=== PATIENT | male | born 1955 | race Caucasian/White ===

== ENCOUNTER → 2023-05-05 | Emergency (ER) | payer MEDICARE ==
[~2023-05-05] MED LIST: CHLORPROMAZINE 25 MG TAB PO SCH; LIDOCAINE VISCOUS 2% 10ML ORAL SOLN ONE; MAGNES/ALUMIN/SIMET 30ML UCUP ONE; NA CHLORIDE 0.9% 500 ML ONE; chlordiazePOXIDE HCl 25 MG CAP ONE
--- NOTE | 2023-05-05 19:04 | RAD REPORT ---
EXAM DESCRIPTION: RAD - Chest Pa And Lat (2 Views) - 05/05/2023 6:51 pm CLINICAL HISTORY: COUGH Chest pain. COMPARISON: Chest Pa And Lat (2 Views) dated 05/25/2019; Chest Pa And Lat (2 Views) dated 07/17/2015 FINDINGS: The lungs are clear. The heart is normal in size. No displaced fractures. IMPRESSION: No acute or concerning finding suspected.
[2023-05-05 19:10] LABS: Albumin 3.6 g/dL (3.4-5.0); Bilirubin Total 0.9 mg/dL (0.2-1.0); Potassium 3.7 mEq/L (3.5-5.1); Protein, Total 6.8 g/dL (6.4-8.2)
[2023-05-05 19:19] LABS: Absolute Lymphocytes (CBC) 2.2 K/uL (0.7-4.9); Hematocrit 43.9 % (39.6-49.0); Lymphocytes % 63.1 % (15.3-44.8); MPV 7.7 fL (7.6-11.3); Platelets 186 thou/uL (152-406); RBC Red Blood Cell Count 5.16 M/uL (4.33-5.43)
--- NOTE | 2023-05-05 19:40 | ER ---
Nurse's Notes [facility] Name: Kathie Howard Age: 68 yrs Sex: Male : 1955 Arrival Date: 05/05/2023 Time: 17:41 Bed 9 Private MD: Diagnosis: Hiccough Presentation: 05/05 17:49 Chief complaint: Patient states: he has had hiccups for 15 days, and nothing has been ap3 working. He was informed by someone to come to the ED to "see Dr. Tolbert". Coronavirus screen: At this time, the client does not indicate any symptoms associated with coronavirus-19. Ebola Screen: No symptoms or risks identified at this time. Initial Sepsis Screen: Does the patient meet any 2 criteria? No. Patient's initial sepsis screen is negative. Does the patient have a suspected source of infection? No. Patient's initial sepsis screen is negative. Risk Assessment: Do you want to hurt yourself or someone else? Patient reports no desire to harm self or others. Onset of symptoms was April 20, 2023. 17:49 Method Of Arrival: Ambulatory ap3 17:49 Acuity: ABHINAV 3 ap3 Triage Assessment: 17:51 General: Appears in no apparent distress. Behavior is calm, cooperative, appropriate ap3 for age. Pain: Denies pain. Neuro: Level of Consciousness is awake, alert, obeys commands, Oriented to person, place, time, situation, Appropriate for age. Cardiovascular: Patient's skin is warm and dry. Respiratory: Airway is patent Respiratory effort is even, unlabored, Respiratory pattern is regular, symmetrical. GI: Reports hiccups. Historical: - Allergies: 17:51 No Known Allergies; ap3 - PMHx: 17:51 Diabetes mellitus; Hypertensive disorder; Hypercholesterolemia; ap3 - PSHx: 17:51 Cholecystectomy; ap3 - Immunization history:: Client reports receiving the 2nd dose of the Covid vaccine, Flu vaccine status is unknown. - Social history:: Smoking status: Patient denies any tobacco usage or history of. Patient uses alcohol, occasionally. Screenin:52 [facility] ED Fall Risk Assessment (Adult) History of falling in the last 3 months, ap3 including since admission No falls in past 3 months (0 pts). Abuse screen: Denies threats or abuse. Nutritional screening: No deficits noted. Tuberculosis screening: No symptoms or risk factors identified. Assessment: 17:56 General: Appears in no apparent distress. comfortable, well groomed, well developed, kc6 Behavior is calm, cooperative, appropriate for age. Pain: Denies pain. Neuro: Level of Consciousness is awake, alert, obeys commands, Oriented to person, place, time, situation, Appropriate for age. Cardiovascular: Capillary refill < 3 seconds. Respiratory: Airway is patent Trachea midline Respiratory effort is even, unlabored, Respiratory pattern is regular, symmetrical. GI: PT REPORTS CONTINUED HICCUPS FOR 15 DAYS. : No signs and/or symptoms were reported regarding the genitourinary system. EENT: No signs and/or symptoms were reported regarding the EENT system. Derm: No signs and/or symptoms reported regarding the dermatologic system. Skin is intact, is healthy with good turgor, Skin is pink, warm \\T\\ dry. Musculoskeletal: No signs and/or symptoms reported regarding the musculoskeletal system. Circulation, motion, and sensation intact. Capillary refill < 3 seconds, Range of motion: intact in all extremities. 20:00 Reassessment: Patient and/or family updated on plan of care and expected duration. Pain ha1 level reassessed. Patient is alert, oriented x 3, equal unlabored respirations, skin warm/dry/pink. Patient states feeling better. Patient states symptoms have improved. Vital Signs: 17:49 BP 136 / 82; Pulse 80; Resp 17; Temp 98.7; Pulse Ox 97% ; Weight 88.45 kg; Height 5 ft. ap3 9 in. ; 20:00 BP 135 / 74; Pulse 78; Resp 17 S; Pulse Ox 97% on R/A; ha1 17:49 Body Mass Index 28.80 (88.45 kg, 175.26 cm) ap3 ED Course: 17:44 Patient arrived in ED. mg5 17:51 Triage completed. ap3 17:52 Arm band placed on left wrist. ap3 17:55 Stefanie Campos, RN is Primary Nurse. kc6 17:55 Patient maintains SpO2 saturation greater than 95% on room air. kc6 17:56 Patient has correct armband on for positive identification. Bed in low position. Call kc6 light in reach. Side rails up X 1. Adult w/ patient. Client placed on continuous cardiac and pulse oximetry monitoring. NIBP monitoring applied. 18:15 Stewart Tolbert MD is Attending Physician. terri 18:29 Attending Physician role handed off by Stewart Tolbert MD kdr 18:29 Eyal Gudino MD is Attending Physician. kdr 18:40 Inserted saline lock: 20 gauge in right forearm, using aseptic technique. Blood kc6 collected. 18:52 Chest Pa And Lat (2 Views) XRAY In Process Unspecified. EDMS 20:26 IV discontinued, intact, bleeding controlled, No redness/swelling at site. Pressure pf1 dressing applied. 20:27 Provided Education on: prescription. pf1 20:27 No provider procedures requiring assistance completed. pf1 Administered Medications: 18:02 Not Given (Duplicate Order): [id number] mg PO once terri 18:07 Not Given (Duplicate Order): [id number] mg PO once terri 18:18 Drug: chlorproMAZINE PO 50 mg PO once Route: PO; kc6 19:38 Follow up: Response: No adverse reaction; Marked relief of symptoms ha1 18:40 Drug: NS 0.9% IV 500 ml IV at bolus once Route: IV; Rate: bolus; Site: right forearm; kc6 20:00 Follow up: Response: No adverse reaction; IV Status: Completed infusion; IV Intake: ha1 500ml 18:40 Drug: GI Cocktail with - (Maalox PO 30 ml, Lidocaine Mucous Membrane 2 % 20 kc6 ml, Phenobarbital-Belladonna PO 10 ml) PO once Route: PO; 20:00 Follow up: Response: No adverse reaction; Marked relief of symptoms ha1 Medication: 20:26 VIS not applicable for this client. pf1 Intake: 20:00 IV: 500ml; Total: 500ml. ha1 Outcome: 19:40 Discharge ordered by . kdr 20:26 Discharged to home ambulatory, with family, pf1 20:26 Condition: improved 20:26 Discharge instructions given to patient, family, Instructed on discharge instructions, follow up and referral plans. Demonstrated understanding of instructions, follow-up care, medications, Prescriptions given X 1, 20:27 Patient left the ED. pf1 Signatures: Dispatcher [employer] EDSC Stewart Tolbert MD MD cha Rittger, Kevin, MD MD kdr Prokisch, Amanda, RN RN ap3 Karen Alba RN RN ha1 Stefanie Campos, RN RN kc6 Jia Diaz, RN RN pf1 Sofia Barboza 5
--- NOTE | 2023-05-05 19:41 | EDPHYS ---
Physician Documentation [facility] Name: Kathie Howard Age: 68 yrs Sex: Male : 1955 Arrival Date: 05/05/2023 Time: 17:41 Bed 9 Private MD: ED Physician Eyal Gudino HPI: 05/05 20:51 This 68 yrs old Male presents to ER via Ambulatory with complaints of Here To See Dr randolph Tolbert. 20:51 This 68 yrs old Male presents to ER via Ambulatory with complaints of Hiccups. kdr 20:51 Patient presents to the ED after having hiccups for the last 15 days. Patient has tried [facility] multiple remedies without success. Patient had been seen at another facility and then sent to the ED to see Dr. Tolbert. Patient is otherwise acutely well. Vital signs are stable. Patient otherwise has no focal complaints. He has not had this before.. Onset: The symptoms/episode began/occurred suddenly, 15 day(s) ago. Severity of symptoms: At their worst the symptoms were severe incapacitating in the emergency department the symptoms have improved markedly. The patient has not experienced similar symptoms in the past. The patient has not recently seen a physician. Historical: - Allergies: 17:51 No Known Allergies; ap3 - PMHx: 17:51 Diabetes mellitus; Hypertensive disorder; Hypercholesterolemia; ap3 - PSHx: 17:51 Cholecystectomy; ap3 - Immunization history:: Client reports receiving the 2nd dose of the Covid vaccine, Flu vaccine status is unknown. - Social history:: Smoking status: Patient denies any tobacco usage or history of. Patient uses alcohol, occasionally. ROS: 20:51 Constitutional: Negative for fever, chills, and weight loss, Eyes: Negative for injury, kdr pain, redness, and discharge, ENT: Negative for injury, pain, and discharge, Neck: Negative for injury, pain, and swelling, Cardiovascular: Negative for chest pain, palpitations, and edema, Respiratory: Negative for shortness of breath, cough, wheezing, and pleuritic chest pain, Abdomen/GI: Negative for abdominal pain, nausea, vomiting, diarrhea, and constipation, Back: Negative for injury and pain, : Negative for injury, bleeding, discharge, and swelling, MS/Extremity: Negative for injury and deformity, Skin: Negative for injury, rash, and discoloration, Neuro: Negative for headache, weakness, numbness, tingling, and seizure activity. Psych: Negative for depression, anxiety, suicide ideation, homicidal ideation, and hallucinations, Allergy/Immunology: Negative for hives, rash, and allergies, Endocrine: Negative for neck swelling, polydipsia, polyuria, polyphagia, and marked weight changes, Hematologic/Lymphatic: Negative for swollen nodes, abnormal bleeding, and unusual bruising, 20:51 Constitutional: Positive for Persistent hiccups, Exam: 20:51 Constitutional: This is a well developed, well nourished patient who is awake, alert, kdr and in no acute distress. Head/Face: Normocephalic, atraumatic. Eyes: Pupils equal round and reactive to light, extra-ocular motions intact. Lids and lashes normal. Conjunctiva and sclera are non-icteric and not injected. Cornea within normal limits. Periorbital areas with no swelling, redness, or edema. Neuro: Awake and alert, GCS 15, oriented to person, place, time, and situation. Cranial nerves II-XII grossly intact. Motor strength 5/5 in all extremities. Sensory grossly intact. Cerebellar exam normal. Normal gait. Psych: Awake, alert, with orientation to person, place and time. Behavior, mood, and affect are within normal limits. Vital Signs: 17:49 BP 136 / 82; Pulse 80; Resp 17; Temp 98.7; Pulse Ox 97% ; Weight 88.45 kg; Height 5 ft. ap3 9 in. ; 20:00 BP 135 / 74; Pulse 78; Resp 17 S; Pulse Ox 97% on R/A; ha1 17:49 Body Mass Index 28.80 (88.45 kg, 175.26 cm) ap3 MDM: 18:15 Patient medically screened. terri 20:51 Data reviewed: vital signs, nurses notes, lab test result(s), radiologic studies. ED kdr course: Patient had significant improvement with the medication in the ED. Patient was happy with the care provided the plan for discharge and follow-up. 05/05 18:16 Order name: CBC with Diff [facility] 05/05 18:16 Order name: Comprehensive Metabolic Panel; Complete Time: 19:32 terri 05/05 18:16 Order name: Chest Pa And Lat (2 Views) XRAY; Complete Time: 19:32 terri Administered Medications: 18:02 Not Given (Duplicate Order): [id number] mg PO once terri 18:07 Not Given (Duplicate Order): [id number] mg PO once terri 18:18 Drug: chlorproMAZINE PO 50 mg PO once Route: PO; kc6 19:38 Follow up: Response: No adverse reaction; Marked relief of symptoms ha1 18:40 Drug: NS 0.9% IV 500 ml IV at bolus once Route: IV; Rate: bolus; Site: right forearm; kc6 20:00 Follow up: Response: No adverse reaction; IV Status: Completed infusion; IV Intake: ha1 500ml 18:40 Drug: GI Cocktail with - (Maalox PO 30 ml, Lidocaine Mucous Membrane 2 % 20 kc6 ml, Phenobarbital-Belladonna PO 10 ml) PO once Route: PO; 20:00 Follow up: Response: No adverse reaction; Marked relief of symptoms ha1 Disposition Summary: 05/05/23 19:40 Discharge Ordered Notes: Location: Home kdr Problem: an ongoing problem kdr Symptoms: have improved kdr Condition: Stable kdr Diagnosis - Hiccough kdr Followup: kdr - With: Private Physician - When: 2 - 3 days - Reason: If symptoms return, Further diagnostic work-up, Recheck today's complaints, Continuance of care, Re-evaluation by your physician Discharge Instructions: - Discharge Summary Sheet kdr - Hiccups kdr Forms: - Medication Reconciliation Form kdr - Thank You Letter kdr - Patient Portal Instructions kdr - Leadership Thank You Letter kdr - Work release form pf1 Prescriptions: - Chlorpromazine 25 mg Oral tablet - take 1 tablet ORAL route every 8 hours As needed; 30 tablet; Refills: 0, kdr Product Selection Permitted Signatures: Dispatcher [employer] EDStewart Olivarez MD MD cha Rittger, Kevin, MD MD kdr Prokisch, Amanda, RN RN anna3 Stefanie Campos RN RN kc6 Karen Alba RN ha1
[2023-05-05 20:52] LABS: Blood Morphology Comment NOT SEEN (NOT SEEN); Platelet Estimate ADEQ
== END ==
LOC: ER 17:41
DX: R06.6 Hiccough (principal); E11.9 Type 2 diabetes mellitus without complications; I10 Essential (primary) hypertension
CPT/HCPCS: 85025; 36415; 80053; 71046; Q0161; J7040

== ENCOUNTER → 2023-06-12 | Emergency (ER) | payer MEDICARE ==
[~2023-06-12] MED LIST changes: -CHLORPROMAZINE 25 MG TAB PO SCH; -LIDOCAINE VISCOUS 2% 10ML ORAL SOLN ONE; -MAGNES/ALUMIN/SIMET 30ML UCUP ONE; +METOCLOPRAMIDE 10 MG/2mL INJ ONE; +MORPHINE 4 MG/ML SYR ONE; +NA CHLORIDE 0.9% 1,000 ML ONE; -NA CHLORIDE 0.9% 500 ML ONE; -chlordiazePOXIDE HCl 25 MG CAP ONE
[2023-06-12 22:59] LABS: Absolute Lymphocytes (CBC) 0.9 K/uL (0.7-4.9); Absolute Monocytes 0.2 K/uL (0.1-1.3); Absolute Neutrophil 1.8 K/uL (1.8-8.0); Basophils % 0.3 % (0-1.3); Hematocrit 44.5 % (39.6-49.0); Hemoglobin 15.5 g/dL (13.6-17.9); Lymphocytes % 30.7 % (15.3-44.8); MCH 30.2 pg (27.0-35.0); MCHC 34.8 g/dL (32.0-36.0); MCV 86.8 fL (80-100); MPV 7.6 fL (7.6-11.3); Monocytes % 8.1 % (3.3-12.3); Neutrophils % 60.9 % (41.7-73.7); Nucleated Red Blood Cells % 0.2 % (0-0); Platelets 163 thou/uL (152-406); RBC Red Blood Cell Count 5.13 M/uL (4.33-5.43); Red Cell Distribution Width 14.7 % (12.1-15.2)
[2023-06-12 23:16] LABS: Albumin 3.7 g/dL (3.4-5.0); Anion Gap 15.3 mEq/L (5.0-15.0); Globulin 3.6 g/dL (2.3-3.5); Potassium 4.3 mEq/L (3.5-5.1); Protein, Total 7.3 g/dL (6.4-8.2)
--- NOTE | 2023-06-13 02:23 | EDPHYS ---
Physician Documentation [facility] Name: Kathie Howard Age: 68 yrs Sex: Male : 1955 Arrival Date: 06/12/2023 Time: 22:31 Bed 16 Private MD: Jessa Bailey ED Physician Zay Aaron HPI: 06/11 22:34 This 68 yrs old Male presents to ER via Unassigned with complaints of High sp4 Blood Sugar. Historical: - Allergies: 22:47 No Known Allergies; tl4 - Home Meds: 22:47 ramipril 10 mg oral capsule 1 cap daily [Active]; atorvastatin 20 mg oral tablet 1 tab tl4 daily [Active]; Farxiga 10 mg oral tablet 1 tab daily [Active]; primidone 50 mg Oral tablet 1 tab 2 times per day [Active]; metformin 1,000 mg Oral tablet 1 tab 2 times per day [Active]; amlodipine 2.5 mg tablet 1 tab daily [Active]; mesalamine 1.2 gram oral tablet, delayed release (enteric coated) 1 tabs twice a day [Active]; - PMHx: 22:47 diabetes mellitus; Hypercholesterolemia; Hypertensive disorder; tl4 - PSHx: 22:47 Cholecystectomy; tl4 - Immunization history:: Adult Immunizations unknown. - Social history:: Smoking status: Patient denies any tobacco usage or history of. Vital Signs: 22:44 BP 153 / 73; Pulse 102; Resp 18; Temp 98.1(O); Pulse Ox 98% ; Weight 88.45 kg; Height 5 tl4 ft. 9 in. ; Pain 6/10; 23:00 BP 126 / 71; Pulse 87; Resp 18; Temp 98; Pulse Ox 99% on R/A; rv 06/12 02:25 BP 124 / 70; Pulse 86; Resp 16; Temp 98; Pulse Ox 99% on R/A; rv 06/11 22:44 Body Mass Index 28.80 (88.45 kg, 175.26 cm) tl4 06/11 22:44 Pain Scale: Adult tl4 Jh Coma Score: 06/11 23:00 Eye Response: spontaneous(4). Motor Response: obeys commands(6). Verbal Response: rv oriented(5). Total: 15. 06/12 02:25 Eye Response: spontaneous(4). Motor Response: obeys commands(6). Verbal Response: rv oriented(5). Total: 15. MDM: 06/11 22:35 Patient medically screened. sp4 06/11 22:35 Order name: CBC with Diff; Complete Time: 02:12 sp4 06/11 22:35 Order name: CMP; Complete Time: 02:12 sp4 06/11 22:35 Order name: Lipase; Complete Time: 02:12 sp4 06/12 00:53 Order name: Glucose, Ancillary Testing; Complete Time: 02:12 EDMS 06/11 22:35 Order name: IV Saline Lock; Complete Time: 22:50 sp4 06/11 22:35 Order name: Labs collected and sent; Complete Time: 22:50 sp4 Administered Medications: 23:01 Drug: NS 0.9% IV 1000 ml IV at 1 bolus Per protocol; 1000 mL bolus Route: IV; Rate: 1 rv bolus; Site: right forearm; 06/12 02:27 Follow up: IV Status: Completed infusion; IV Intake: 1000ml rv 06/11 23:01 Drug: metoCLOPramide IVP 10 mg IVP once; over 1 to 2 minutes Route: IVP; Site: right rv forearm; 06/12 02:27 Follow up: Response: No adverse reaction; Marked relief of symptoms rv 06/11 23:01 Drug: morphine IVP or IV 4 mg IVP once over 4 mins Route: IVP; Infused Over: 4 mins; rv Site: right forearm; 06/12 02:27 Follow up: Response: No adverse reaction; Marked relief of symptoms rv 02:27 Not Given (NOT APPROPRIATE AT THIS TIMEe): ns 0.9% 1000 ml IV at 250 ml/hr continuous rv Disposition Summary: 06/13/23 02:23 Discharge Ordered Notes: Location: Home sp4 Problem: new sp4 Symptoms: have improved sp4 Condition: Stable sp4 Diagnosis - Type 2 diabetes mellitus with hyperglycemia sp4 Followup: sp4 - With: Private Physician - When: 7 - 10 days - Reason: Recheck today's complaints Discharge Instructions: - Discharge Summary Sheet sp4 - Hyperglycemia sp4 Signatures: Dispatcher [employer] Rivera Baldwin RN RN Zay Alcantara MD MD sp4 Logdahl, Gil, RN RN tl4
--- NOTE | 2023-06-13 02:23 | ER ---
Nurse's Notes [facility] Name: Kathie Howard Age: 68 yrs Sex: Male : 1955 Arrival Date: 06/12/2023 Time: 22:31 Bed 16 Private MD: Jessa Bailey Diagnosis: Type 2 diabetes mellitus with hyperglycemia Presentation: 06/11 22:44 Chief complaint: Patient states: Pt states his glucometer is reading "HI" which is tl4 greater than 400 mg/dL. Pt states he had anesthesia today but has never had this reaction before. Pt c/o ALVES, dry mouth. Coronavirus screen: At this time, the client does not indicate any symptoms associated with coronavirus-19. Ebola Screen: No symptoms or risks identified at this time. Initial Sepsis Screen: Does the patient meet any 2 criteria? No. Patient's initial sepsis screen is negative. Does the patient have a suspected source of infection? No. Patient's initial sepsis screen is negative. Risk Assessment: Do you want to hurt yourself or someone else? Patient reports no desire to harm self or others. Onset of symptoms was June 12, 2023. 22:44 Method Of Arrival: Ambulatory tl4 22:44 Acuity: ABHINAV 3 tl4 Triage Assessment: 22:46 General: Appears in no apparent distress. Behavior is calm, cooperative. Pain: tl4 Complains of pain in headache. EENT: No deficits noted. Neuro: Level of Consciousness is awake, alert, obeys commands, Oriented to person, place, time, situation, Speech is normal, Facial symmetry appears normal. Cardiovascular: Capillary refill < 3 seconds Patient's skin is warm and dry. Respiratory: Denies cough, shortness of breath. GI: Patient currently denies diarrhea, nausea, vomiting. : No deficits noted. No signs and/or symptoms were reported regarding the genitourinary system. Derm: No deficits noted. No signs and/or symptoms reported regarding the dermatologic system. Musculoskeletal: No deficits noted. No signs and/or symptoms reported regarding the musculoskeletal system. Historical: - Allergies: 22:47 No Known Allergies; tl4 - Home Meds: 22:47 ramipril 10 mg oral capsule 1 cap daily [Active]; atorvastatin 20 mg oral tablet 1 tab tl4 daily [Active]; Farxiga 10 mg oral tablet 1 tab daily [Active]; primidone 50 mg Oral tablet 1 tab 2 times per day [Active]; metformin 1,000 mg Oral tablet 1 tab 2 times per day [Active]; amlodipine 2.5 mg tablet 1 tab daily [Active]; mesalamine 1.2 gram oral tablet, delayed release (enteric coated) 1 tabs twice a day [Active]; - PMHx: 22:47 diabetes mellitus; Hypercholesterolemia; Hypertensive disorder; tl4 - PSHx: 22:47 Cholecystectomy; tl4 - Immunization history:: Adult Immunizations unknown. - Social history:: Smoking status: Patient denies any tobacco usage or history of. Screenin:00 [facility] ED Fall Risk Assessment (Adult) History of falling in the last 3 months, rv including since admission No falls in past 3 months (0 pts) Score/Fall Risk Level 0 - 2 = Low Risk Oriented to surroundings, Maintained a safe environment, Educated pt \\T\\ family on fall prevention, incl call for assistance when getting out of bed, Assessed \\T\\ reinforced patient's understanding of fall precautions. Abuse screen: Denies threats or abuse. Denies injuries from another. Nutritional screening: No deficits noted. Tuberculosis screening: No symptoms or risk factors identified. Assessment: 23:00 General: Appears comfortable, Behavior is calm, cooperative. rv 23:00 Pain: Complains of pain in head. Neuro: Level of Consciousness is awake, alert, obeys rv commands, Oriented to person, place, time, situation, Reports headache. Cardiovascular: Capillary refill < 3 seconds Patient's skin is warm and dry. Respiratory: Airway is patent Respiratory effort is even, unlabored. GI: No signs and/or symptoms were reported involving the gastrointestinal system. : No signs and/or symptoms were reported regarding the genitourinary system. Vital Signs: 22:44 BP 153 / 73; Pulse 102; Resp 18; Temp 98.1(O); Pulse Ox 98% ; Weight 88.45 kg; Height 5 tl4 ft. 9 in. ; Pain 6/10; 23:00 BP 126 / 71; Pulse 87; Resp 18; Temp 98; Pulse Ox 99% on R/A; rv 06/12 02:25 BP 124 / 70; Pulse 86; Resp 16; Temp 98; Pulse Ox 99% on R/A; rv 06/11 22:44 Body Mass Index 28.80 (88.45 kg, 175.26 cm) tl4 03 22:44 Pain Scale: Adult tl4 Jh Coma Score: 06/11 23:00 Eye Response: spontaneous(4). Motor Response: obeys commands(6). Verbal Response: rv oriented(5). Total: 15. 06/12 02:25 Eye Response: spontaneous(4). Motor Response: obeys commands(6). Verbal Response: rv oriented(5). Total: 15. ED Course: 06/11 22:33 Patient arrived in ED. mr 22:33 Jessa Bailey is Private Physician. mr 22:34 Zay Aaron MD is Attending Physician. sp4 22:38 Rivera Massey RN is Primary Nurse. rv 22:46 Triage completed. tl4 22:46 Arm band placed on right wrist. tl4 23:00 Patient has correct armband on for positive identification. Client placed on continuous rv cardiac and pulse oximetry monitoring. NIBP monitoring applied. 23:00 No provider procedures requiring assistance completed. Inserted saline lock: 20 gauge rv in right forearm, using aseptic technique. Blood collected. 06/12 02:26 IV discontinued, intact, bleeding controlled, No redness/swelling at site. Pressure rv dressing applied. Administered Medications: 06/11 23:01 Drug: NS 0.9% IV 1000 ml IV at 1 bolus Per protocol; 1000 mL bolus Route: IV; Rate: 1 rv bolus; Site: right forearm; 06/12 02:27 Follow up: IV Status: Completed infusion; IV Intake: 1000ml rv 06/11 23:01 Drug: metoCLOPramide IVP 10 mg IVP once; over 1 to 2 minutes Route: IVP; Site: right rv forearm; 06/12 02:27 Follow up: Response: No adverse reaction; Marked relief of symptoms rv 06/11 23:01 Drug: morphine IVP or IV 4 mg IVP once over 4 mins Route: IVP; Infused Over: 4 mins; rv Site: right forearm; 06/12 02:27 Follow up: Response: No adverse reaction; Marked relief of symptoms rv 02:27 Not Given (NOT APPROPRIATE AT THIS TIMEe): ns 0.9% 1000 ml IV at 250 ml/hr continuous rv Medication: 06/11 23:00 VIS not applicable for this client. rv Intake: 06/12 02:27 IV: 1000ml; Total: 1000ml. rv Outcome: 02:23 Discharge ordered by sp4 02: Discharged to home ambulatory, rv 02: Condition: good 02:26 Discharge instructions given to patient, Instructed on discharge instructions, follow up and referral plans. Demonstrated understanding of instructions, follow-up care, 02:27 Patient left the ED. rv Signatures: Leonor Nieves, Reg Reg mr Rivera Massey, RN RN rv Zay Aaron MD MD sp4 Gil Jimenez RN RN tl4
[2023-06-13 02:43] VITALS: BP 124/70; TEMP 98; O2SAT 99
== END ==
LOC: ER 22:31
DX: E11.65 Type 2 diabetes mellitus with hyperglycemia (principal); I10 Essential (primary) hypertension
CPT/HCPCS: 85025; 36415; 83690; 80053; J2765; J7030; 96361; 96374; 96375; 99284